=== PATIENT | female | born 1990 | race Caucasian/White ===

== ENCOUNTER 2016-11-19 02:33 | Emergency (ER) | payer SELFPAY ==
[2016-11-19 03:02] LABS: BHCG - Serum NEGATIVE (NEGATIVE); Pregs Control Bar Appear? YES (CONTROL BAR)
[2016-11-19 03:03] LABS: #Basophils 0.1 thou/uL (0.0-0.2); #Lymphocytes 1.9 thou/uL (1.20-3.40); #Neutrophils 12.5 thou/uL (1.40-6.50); %Basophils 0.6 % (0.0-1.0); %Eosinophils 0.2 % (0.0-10.0); %Lymphocytes 12.3 % (21.0-51.0); %Monocytes 6.1 % (0.0-10.0); %Neutrophils 80.7 % (42.0-75.0); Hemoglobin 13.9 g/dL (12.0-16.0); Mean Corpuscular HGB CONC 34.6 g/dL (32.0-36.0); Mean Corpuscular Volume 86.6 fl (81.0-99.0); Mean Platelet Volume 8.6 fL (7.4-10.4); Platelet Count 223 thou/uL (130-400); RBC Distribution Width 11.9 % (11.5-14.5); Red Blood Cell (RBC) Count 4.65 mill/uL (4.20-5.40); White Blood Cell (WBC) Count 15.5 thou/uL (4.8-10.8)
[2016-11-19] MEDS ORDERED: Ondansetron HCl/PF 4 MG/2 ML Vial ONE (03:03)
[2016-11-19 03:15] LABS: ALT (SGPT) 7 U/L (8-55); AST (SGOT) 14 U/L (5-34); Albumin 4.5 g/dL (3.5-5.0); Alkaline Phosphatase 86 U/L (40-150); Anion Gap 15 mmol/L (10-20); BUN (Urea Nitrogen) 9 mg/dL (7.0-18.7); Bilirubin, Total 0.5 mg/dL (0.2-1.2); Calc. Creatinine Clearance 0 mL/min (70-130); Calcium 9.4 mg/dL (7.8-10.44); Carbon Dioxide 22 mmol/L (22-29); Chloride 107 mmol/L (98-107); Estimated GFR-MDRD Greater than 90; Glucose 115 mg/dL (70-105); Potassium 3.8 mmol/L (3.5-5.1); Protein, Total 7.5 g/dL (6.0-8.3); Sodium 140 mmol/L (136-145)
[2016-11-19 03:19] LABS: Bilirubin Negative (Negative); Blood, Urine Trace (Negative); Clarity Clear (Clear); Glucose, Urine (Dipstick) Negative (Negative); Leukocyte Negative (Negative); Nitrite Negative (Negative); Protein, Urine (Dipstick) 30 mg/dL (Neg-Trace); Specific Gravity, Urine 1.025 (1.005-1.030); Urobilinogen 0.2 mg/dL (0.2-1.0)
[2016-11-19 03:24] LABS: Bacteria/HPF Rare-Few HPF (None Seen); WBC/HPF 0-3 HPF (0-3)
[2016-11-19 03:25] LABS: Crystals/HPF RARE CA OXALATE HPF (Negative)
--- NOTE | 2016-11-19 08:00 | RAD ---
RIGHT ELBOW 4 VIEWS: Date: 11/19/16 HISTORY: Injury to right elbow. FINDINGS: No evidence of fracture identified. No evidence of joint effusion. IMPRESSION: No acute abnormality identified. POS: [facility]
--- NOTE | 2016-11-19 08:26 | CT ---
PRELIMINARY REPORT/[facility]/EMERGENCY AFTER HOURS PROCEDURE: EXAM: CT Chest With Intravenous Contrast CLINICAL HISTORY: 26 years old, female; Injury or trauma; Injury Kicked by mule; Initial encounter; Blunt trauma (cont usions or hematomas); Injury date: 11/18/2016; Patient HX: Pt reports she was kicked in the right ch est by a mule 2 hours ago. Knocker her back onto the ground. Hit her occiput slightly but no loc or neck pain. Pt with constant pain in right chest, shoulder, right upper back, and right elbow. Pt with tingling of her right fingertips. Pt with pain on movement but no pain with deep breaths an d no SOB. ; Additional info: Preg test neg TECHNIQUE: Axial computed tomography images of the chest with intravenous contrast. This CT exam was performed using one or more of the following dose reduction techniques: automated exposure control, adjustment of the mA and/or kV according to patient size, and/or use of iterative reconstruction technique. Coronal reformatted images were created and reviewed. CONTRAST: 96 mL of ISOVUE 370 administered intravenously. COMPARISON: No relevant prior studies available. FINDINGS: Lungs: Unremarkable. No mass. No consolidation. Pleural space: Unremarkable. No pneumothorax. No significant effusion. Heart: Unremarkable. No cardiomegaly. No significant pericardial effusion. Bones/joints: Lucent and sclerotic lesion in the proximal left humerus likely represents a chondroid matrix type lesion. No acute fracture. No dislocation. Soft tissues: Unremarkable. Vasculature: Unremarkable. No thoracic aortic aneurysm. Lymph nodes: Unremarkable. No enlarged lymph nodes. IMPRESSION: No acute traumatic injury to the chest. Thank you for allowing us to participate in the care of your patient. Dictated and Authenticated by: Monisha Mazariegos MD 11/19/2016 4:06 AM Central Time ([place] \T\ [place]) FINAL REPORT CT CHEST WITH IV CONTRAST: Date: 11/19/16 I agree with the preliminary report given by Dr. Monisha Mazariegos of [facility]. POS: [facility]
[2016-11-19] MEDS ORDERED: Iopamidol 370 76% 100 ML VIAL ONE (09:00)
== END 2016-11-19 04:30 | disposition home or self-care (01) ==
LOC: NAV ERS 02:33
DX: S28.0XXA Crushed chest, initial encounter (principal); F31.9 Bipolar disorder, unspecified; F41.9 Anxiety disorder, unspecified; X58.XXXA Exposure to other specified factors, initial encounter
CPT/HCPCS: 71260; 80053; 80307; 81003; 81015; 84703; 85025; 93005; 96361; 96374; 96375; J2270; J2405

== ENCOUNTER 2017-01-07 14:57 | Emergency (ER) | payer SELFPAY ==
[2017-01-07] MEDS ORDERED: Ondansetron HCl/PF 4 MG/2 ML Vial ONE (15:48)
[2017-01-07] MEDS ORDERED: Sodium Chloride 0.9% 1,000 ML ONE (15:48)
[2017-01-07 16:01] LABS: Bilirubin Negative (Negative); Blood, Urine Negative (Negative); Clarity Clear (Clear); Glucose, Urine (Dipstick) Negative (Negative); Leukocyte Small (Negative); Nitrite Positive (Negative); Protein, Urine (Dipstick) Negative (Neg-Trace); Urobilinogen 0.2 mg/dL (0.2-1.0); pH, Urine 5.5 (5.0-9.0)
[2017-01-07 16:02] LABS: Pregnancy Test - Urine (BHCG) POSITIVE (NEGATIVE); Pregu Control Background? CLEAR/WHITE (CLR/WHITE); Pregu Control Bar Appear? YES (CONTROL BAR)
[2017-01-07 16:08] LABS: #Basophils 0.1 thou/uL (0.0-0.2); #Eosinphils 0.1 thou/uL (0.0-0.7); #Lymphocytes 2.2 thou/uL (1.20-3.40); #Monocytes 0.6 thou/uL (0.11-0.59); #Neutrophils 5.5 thou/uL (1.40-6.50); %Basophils 0.8 % (0.0-1.0); %Lymphocytes 26.2 % (21.0-51.0); %Monocytes 6.6 % (0.0-10.0); %Neutrophils 65.4 % (42.0-75.0); Hemoglobin 13.1 g/dL (12.0-16.0); Mean Corpuscular HGB CONC 33.9 g/dL (32.0-36.0); Mean Corpuscular Hemoglobin 29.5 pg (27.0-31.0); Platelet Count 208 thou/uL (130-400); RBC Distribution Width 11.1 % (11.5-14.5); Red Blood Cell (RBC) Count 4.43 mill/uL (4.20-5.40); White Blood Cell (WBC) Count 8.4 thou/uL (4.8-10.8)
[2017-01-07 16:18] LABS: Bacteria/HPF 1+ HPF (None Seen); RBC/HPF 0-3 HPF (0-3); Squamous Epithelial 0-3 HPF (0-3)
[2017-01-07 16:30] LABS: ALT (SGPT) 10 U/L (8-55); AST (SGOT) 14 U/L (5-34); Albumin 4.2 g/dL (3.5-5.0); Alkaline Phosphatase 86 U/L (40-150); Anion Gap 13 mmol/L (10-20); BUN (Urea Nitrogen) 6 mg/dL (7.0-18.7); Bilirubin, Total 0.6 mg/dL (0.2-1.2); Calc. Creatinine Clearance 0 mL/min (70-130); Carbon Dioxide 24 mmol/L (22-29); Chloride 104 mmol/L (98-107); Estimated GFR-MDRD Greater than 90; Globulin 2.7 g/dL (2.4-3.5); Glucose 82 mg/dL (70-105); Lipase 20 U/L (8-78); Potassium 3.6 mmol/L (3.5-5.1); Protein, Total 6.9 g/dL (6.0-8.3); Sodium 137 mmol/L (136-145)
== END 2017-01-07 16:47 | disposition home or self-care (01) ==
LOC: NAV ERS 14:57
DX: N39.0 Urinary tract infection, site not specified (principal); Z32.01 Encounter for pregnancy test, result positive; F31.9 Bipolar disorder, unspecified; F41.9 Anxiety disorder, unspecified
CPT/HCPCS: 36415; 80053; 81003; 81015; 81025; 83690; 85025; 96361; 96374; J2405; J7050

== ENCOUNTER 2017-03-30 16:55 | Emergency (ER) | payer OTHER ==
[2017-03-30] MEDS ORDERED: Acetaminophen/Codeine 30-300mg Tablet ONE (17:26)
[2017-03-30] MEDS ORDERED: Amoxicillin/Potassium Clav 875 MG TAB ONE (17:27)
== END 2017-03-30 17:35 | disposition home or self-care (01) ==
LOC: NAV ERS 16:55
DX: K02.9 Dental caries, unspecified (principal); F31.9 Bipolar disorder, unspecified; F41.9 Anxiety disorder, unspecified
CPT/HCPCS: 99282

== ENCOUNTER 2017-04-15 12:12 | Outpatient (CLI) | payer OTHER ==
--- NOTE | 2017-04-15 16:19 | ULT ---
OB ULTRASOUND: Date: 04-15-17 History: Evaluate for size and dates in a patient with positive . FINDINGS: There is a single intrauterine gestation in cephalic presentation. Cardiac doppler demonstrates feta l heart tones with a heart rate of 176 bpm. Placenta is located posteriorly. The lower uterine segment is not well seen on this exam, including the internal cervical os which limits evaluation for placenta previa or low lying placenta. There do es not appear to be a definite placenta previa, low lying placenta cannot be excluded on this exam d ue to difficulty in visualization of the internal cervical os. There is a normal amount of amniotic fluid with an amniotic fluid index of 13.6 cm. measurements: BPD 4.86 cm 20 weeks 5 days HC 18.31 cm 20 weeks 5 days AC 15.29 cm 20 weeks 3 days FL 3.27 cm 20 weeks 1 day The estimated gestational age by ultrasound is 20 weeks 2 days with an WILFRED of 18. Gestational ag e by last menstrual period is 20 weeks 6 days. The estimated weight by ultrasound is 352.05 grams (12 oz). This represents 22.9 percentile fo r weight. The cerebellum, limited visualized portions of the spine, four chambered heart, stomach, bilat eral kidneys, urinary bladder, and cord insertion demonstrate a normal sonographic appearance. Three vessel cord is difficult to delineate but there is suggestion of a three vessel cord. No definite f etal anomalies are appreciated. IMPRESSION: 1. Limited visualization lower uterine segment and low lying placenta cannot be determined on this e xam. Follow up exam is suggested in 4-6 weeks. 2. Single intrauterine gestation cephalic presentation with heart tones documented. Estimated gestational age by ultrasound is 20 weeks 2 days with an WILFRED on 08-31-17. 3. Estimated weight by ultrasound 352.05 grams (12 oz). 4. Amniotic fluid index is 13.56 cm. POS: [facility]
== END 2017-04-15 12:13 | disposition home or self-care (01) ==
LOC: NAV ULT 12:12
PROVIDERS: ATTEND Family Medicine
DX: O09.292 Supervision of pregnancy with other poor reproductive or obstetric history, second trimester (principal); Z3A.20 20 weeks gestation of pregnancy
CPT/HCPCS: 76805

== ENCOUNTER 2021-01-21 09:47 | Emergency (ER) | payer OTHER, SELFPAY ==
[2021-01-21] MEDS ORDERED: Bupivacaine 0.5% 10 ML VIAL ONE (10:12)
== END 2021-01-21 10:30 | disposition home or self-care (01) ==
LOC: NAV ERS 09:47
DX: K02.9 Dental caries, unspecified (principal)
CPT/HCPCS: 64400; J3490

== ENCOUNTER 2022-06-15 10:09 | Emergency (ER) | payer OTHER ==
[2022-06-15] MEDS ORDERED: Sodium Chloride 0.9% 1,000 ML ONE (10:32)
[2022-06-15] MEDS ORDERED: Ketorolac Tromethamine 30 MG/ML VIAL ONE (10:32)
[2022-06-15 10:50] LABS: Bilirubin Small (Negative); Blood, Urine Negative (Negative); Glucose, Urine (Dipstick) Negative (Negative); Ketone, Urine Negative (Negative); Leukocyte Negative (Negative); Nitrite Negative (Negative); Protein, Urine (Dipstick) > or equal to 300 mg/dL (Neg-Trace); Urobilinogen 0.2 mg/dL (Less than 2)
[2022-06-15 10:55] LABS: Clarity Hazy (Clear)
[2022-06-15 10:57] LABS: Specific Gravity, Urine 1.038 (1.002-1.036)
[2022-06-15 10:58] LABS: Alcohol Less than 10 mg/dL (Less than 10); CK (CPK) 52 U/L (29-168); Salicylate Less than 8.0 mg/dL (15.0-30.0)
[2022-06-15 10:59] LABS: Bacteria/HPF Rare-Few HPF (None Seen); Mucous/LPF 2+ LPF (<2+); Squamous Epithelial 0-3 HPF (0-3); Transitional Epithelial 0-3 HPF (None Seen); WBC/HPF 0-3 HPF (0-3)
[2022-06-15 11:01] LABS: Amphetamine Not Detected (NotDetected); Barbiturates Screen Not Detected (NotDetected); Benzodiazepine Screen Detected (NotDetected); Cocaine Metabolite Screen Not Detected (NotDetected); Medtox Control Line Valid? VALID (VALID); Methadone Not Detected (NotDetected); Methamphetamine Not Detected (NotDetected); Opiate Screen Detected (NotDetected); Oxycodone Screen Detected (NotDetected); Phencyclidine (PCP) Not Detected (NotDetected); THC/Cannabinoid Screen Not Detected (NotDetected); Tricyclic Screen Detected (NotDetected)
[2022-06-15] MEDS ORDERED: Benzonatate 100 MG CAP ONE (11:01)
[2022-06-15 11:02] LABS: Pregnancy Test - Urine (BHCG) Negative (Negative); Pregu Control Background? CLEAR/WHITE (CLR/WHITE); Pregu Control Bar Appear? YES (CONTROL BAR); Specific Gravity 1.038 (1.002-1.036)
[2022-06-15 11:04] LABS: ALT (SGPT) 9 U/L (8-55); AST (SGOT) 18 U/L (5-34); Alkaline Phosphatase 71 U/L (40-110); Anion Gap 15 mmol/L (10-20); BUN (Urea Nitrogen) 13 mg/dL (7.0-18.7); Bilirubin, Total 0.5 mg/dL (0.2-1.2); Calc. Creatinine Clearance 0 mL/min (70-130); Calcium 8.7 mg/dL (7.8-10.44); Carbon Dioxide 24 mmol/L (22-29); Chloride 103 mmol/L (98-107); Estimated GFR 112; Globulin 2.9 g/dL (2.4-3.5); Glucose 136 mg/dL (70-105); Protein, Total 6.9 g/dL (6.0-8.3); Sodium 138 mmol/L (136-145)
[2022-06-15 11:10] LABS: #Lymphocytes 1.2 thou/uL (1.20-3.40); #Monocytes 0.8 thou/uL (0.11-0.59); #Neutrophils 8.2 thou/uL (1.40-6.50); %Basophils 0.5 % (0.0-1.0); %Lymphocytes 11.4 % (21.0-51.0); %Monocytes 7.5 % (0.0-10.0); %Neutrophils 80.6 % (42.0-75.0); Hemoglobin 12.5 g/dL (12.0-16.0); Mean Corpuscular HGB CONC 32.5 g/dL (32.0-36.0); Mean Corpuscular Hemoglobin 27.1 pg (27.0-31.0); Mean Corpuscular Volume 83.4 fl (78.0-98.0); Mean Platelet Volume 8.2 fL (7.4-10.4); Platelet Count 175 10x3/uL (130-400); RBC Distribution Width 15.5 % (11.5-14.5); Red Blood Cell (RBC) Count 4.63 mill/uL (4.20-5.40); White Blood Cell (WBC) Count 10.2 10x3/uL (4.8-10.8)
[2022-06-15 11:42] LABS: SARS-CoV-2 NAA Rapid Test Not Detected (NotDetected)
== END 2022-06-15 15:00 | disposition short-term general hospital (02) ==
LOC: NAV ERS 10:09
DX: J11.1 Influenza due to unidentified influenza virus with other respiratory manifestations (principal); R09.02 Hypoxemia; F17.210 Nicotine dependence, cigarettes, uncomplicated; Z20.822 Contact with and (suspected) exposure to COVID-19
CPT/HCPCS: 51701; 71045; 80053; 80306; 80307; 81003; 81015; 81025; 82550; 83605; 84484; 85025; 87040; 94760; 96361; 96374; J1885; J7050; J7620